=== PATIENT | male | born 1990 ===

== ENCOUNTER 2018-07-18 23:45 | Emergency (ER) | payer OTHER ==
[~2018-07-18] VITALS: Ht 180.3 cm; Wt 88.5 kg
[~2018-07-18 23:45] MED LIST: FOCALIN XR15 MG
[2018-07-19] MEDS ORDERED: KETO10TA2 PO (01:58)
[2018-07-19] MEDS ORDERED: CEFUROXIME500 MG PO (01:58)
[2018-07-19] MEDS ORDERED: CORTISPORIN EAR10 M1 OPHT (01:58)
== END 2018-07-19 02:05 | disposition home or self-care (01) ==
LOC: ER 23:45
DX: H60.8X2 Other otitis externa, left ear (principal)